=== PATIENT | male | born 1970 ===

== ENCOUNTER 2018-06-16 13:41 | Emergency (ER) | payer OTHER, BC ==
[2018-06-16 13:42] VITALS: BMI 27.3
[2018-06-16 13:46] VITALS: BP 148/88; PULSE 87; RESP 16; TEMP 98.5; O2SAT 98
--- NOTE | 2018-06-16 14:34 | ED PDOC ---
HPI: Back Time Seen by Provider: 06/16/18 13:53 Chief Complaint (Nursing): Back Pain Chief Complaint (Provider): Back Pain History Per: Patient History/Exam Limitations: no limitations Onset/Duration Of Symptoms: Days Current Symptoms Are (Timing): Still Present Additional Complaint(s): 47 year old male with a past medical history of hypercholesterolemia who is presenting to the ED for evaluation of back, knee, and shoulder pain after fall at work 4 days ago. Patient states that 4 days ago he was working on a truck and fell approximately 6 feet. He states that his left knee got caught as he attempted to stop the fall and he ended up falling onto his back and right shoulder. He notes that he has been having back, right shoulder, and knee pain which is mildly alleviated with Ibuprofen. He states that he did not come to the ED earlier as he was doing paperwork for workers compensation. Patient denies any head trauma, loss of consciousness, dizziness, nausea, or vomiting, but does admits to some tingling in bilateral hands and feet since fall. Of note, patient took ibuprofen last night with no medications taken today. PMD: none provided Past Medical History Reviewed: Historical Data, Nursing Documentation, Vital Signs Vital Signs: Last Vital Signs Temp 98.5 F 06/16/18 13:44 Pulse 87 06/16/18 13:44 Resp 16 06/16/18 13:44 BP 148/88 06/16/18 13:44 Pulse Ox 98 06/16/18 13:44 - Medical History PMH: Hypercholesterolemia - Surgical History Surgical History: No Surg Hx - Family History Family History: States: Unknown Family Hx - Social History Current smoker - smoking cessation education provided: No Alcohol: Social Drugs: Denies - Home Medications Home Medications: Ambulatory Orders Medication Instructions Recorded Ibuprofen [Motrin] 600 mg PO TID #30 tab 04/20/17 Methocarbamol [Robaxin] 500 mg PO TID #14 tab 09/11/17 Prednisone [Deltasone] 40 mg PO DAILY #8 tablet 09/11/17 traMADol [Ultram] 50 mg PO TID #7 tab 09/11/17 Ibuprofen [Motrin Tab] 800 mg PO Q6 PRN 7 Days tab 06/16/18 - Allergies Allergies/Adverse Reactions: Allergies Allergy/AdvReac Type Severity Reaction Status Date / Time No Known Allergies Allergy Verified 06/16/18 13:44 Review of Systems ROS Statement: Except As Marked, All Systems Reviewed And Found Negative Gastrointestinal: Negative for: Nausea, Vomiting Musculoskeletal: Positive for: Shoulder Pain, Back Pain, Leg Pain Neurological: Positive for: Other ((+) tingling in bilateral arms and feet (-) loss of consciousness). Negative for: Headache, Dizziness Physical Exam - Reviewed Nursing Documentation Reviewed: Yes Vital Signs Reviewed: Yes - Physical Exam Appears: Positive for: Non-toxic, No Acute Distress, Uncomfortable Head Exam: Positive for: ATRAUMATIC, NORMAL INSPECTION, NORMOCEPHALIC Skin: Positive for: Normal Color, Warm, DRY Eye Exam: Positive for: EOMI, Normal appearance, PERRL ENT: Positive for: Normal ENT Inspection Neck: Positive for: Decreased ROM (decreased rom with lateral rotation due to right sided neck pain, normal flexion and extension at neck, no pain or C- spine tenderness, (+) right lateral para-cervical spinal tenderness no ecchymosis ) Pulses-Dorsalis Pedis (L): 1+ Pulses-Dorsalis Pedis (R): 1+ Pulses-Radial (L): 2+ Pulses-Radial (R): 2+ Back: Positive for: Other (positive ecchymosis on lumbar spine around mild lumbar spine as well as mild thoracic spine with tenderness on palpation ) Extremity: Positive for: Capillary Refill (normal, less than 2 seconds ), Other (Left knee: no ecchymosis or swelling, (+) tenderness to palpation of the superior lateral knee with greater tenderness with lateral rotation of foot, normal flexion and extension of bilateral knees no tenderness to patella ; Right shoulder: mild tenderness between neck and arm full rom with flexion extension and abduction bilateral arms ). Negative for: Deformity, Swelling Neurologic/Psych: Positive for: Alert, Oriented, Other (sensation to light touch intact ). Negative for: Motor/Sensory Deficits - ECG O2 Sat by Pulse Oximetry: 98 (RA) Pulse Ox Interpretation: Normal Medical Decision Making Medical Decision Making: Time: 14:10 Plan: --CT Lumbar Spine without Contrast --CT Thoracic Spine without Contrast --Toradol 30 mg IM --Knee X-Ray --Shoulder X-Ray Knee x-ray: FINDINGS: BONES: Normal. No fracture. JOINTS: Normal. No osteoarthritis. JOINT EFFUSION: None. OTHER FINDINGS: None. IMPRESSION: Normal radiographs of the left knee. Shoulder X-ray: FINDINGS: BONES: Limited examination consists of only a single view. No fracture identified. JOINTS: Normal. Glenohumeral and acromioclavicular joints preserved. No osteoarthritis. SOFT TISSUES: Normal. OTHER FINDINGS: None. IMPRESSION: Normal limited examination Thoracic Spine CT: FINDINGS: VERTEBRAE: The vertebral bodies are maintained in height. Normal alignment is maintained.. DISCS/SPINAL CANAL/NEURAL FORAMINA: Within the limits of the CT technique, no disc herniation seen. No central canal or neural foraminal stenosis.. PARASPINAL SOFT TISSUES: Unremarkable. OTHER FINDINGS: Unremarkable. IMPRESSION: No acute fracture. Unremarkable examination. Lumbar Spine CT: FINDINGS: VERTEBRAE: The vertebral bodies are maintained in height. There is bilateral L3 spondylolysis. There are sclerotic borders consistent with congenital spondylolysis or old pars fractures. There is no spondylolisthesis. DISCS/SPINAL CANAL/NEURAL FORAMINA: L1-2: No disc bulge or herniation. No spinal or neural foraminal stenosis. L2-3: No disc bulge or herniation. No spinal or neural foraminal stenosis. L3-4: Extensive diffuse disc bulge. No focal herniation. There narrowing of the L3-4 disc space with osteophytes noted about the disc space, consistent with degenerative disc disease. No central spinal stenosis. Moderate right and severe left neural foraminal stenosis. L4-5: Mild diffuse disc bulge. No focal disc herniation. Minimal bilateral neural foraminal stenosis. No central spinal stenosis. L5-S1: No disc bulge or herniation. No spinal or neural foraminal stenosis. PARASPINAL SOFT TISSUES: Unremarkable. OTHER FINDINGS: None. IMPRESSION: No acute fracture. Degenerative disc disease L3-4. Bilateral old L3 spondylolysis, possibly congenital. Disc bulge L3-4 with bilateral neural foraminal stenosis. Minimal disc bulge L4-5 with minimal bilateral neural foraminal stenosis. No central spinal stenosis. 16:45 Patient states the pain somewhat approved. Stable for discharge home. Scribe Attestation: Documented by, Lucrecia Nieves acting as a scribe for Isabelle Hale PA-C. Provider Scribe Attestation: All medical record entries made by the Scribe were at my direction and personally dictated by me. I have reviewed the chart and agree that the record accurately reflects my personal performance of the history, physical exam, medical decision making, and the department course for this patient. I have also personally directed, reviewed, and agree with the discharge instructions and disposition. Disposition - Clinical Impression Clinical Impression: Traumatic ecchymosis of lower back, Shoulder pain, right, Knee pain, left - Patient ED Disposition Is Patient to be Admitted: No - Disposition Referrals: [facility] at [place] [Outside] Disposition: Routine/Home Disposition Time: 16:45 Condition: STABLE Additional Instructions: F/u in orthopedic clinic for further evaluation of knee pain. Take Tylenol and Ibuprofen for pain. Return to ER if you are unable to walk due to pain. Prescriptions: Ibuprofen [Motrin Tab] 800 mg PO Q6 PRN 7 Days tab PRN Reason: Pain, Moderate (4-7) Instructions: Contusion (DC), Shoulder Pain (DC) Forms: [employer] (T[place]anian), [facility] ED School/Work Excuse Print Language: AZERI
--- NOTE | 2018-06-16 14:58 | RAD ---
Date of service: 06/16/2018 PROCEDURE: Radiographs of the Right Shoulder HISTORY: fall onto back and R shoulder COMPARISON: No prior. FINDINGS: BONES: Limited examination consists of only a single view. No fracture identified. JOINTS: Normal. Glenohumeral and acromioclavicular joints preserved. No osteoarthritis. SOFT TISSUES: Normal. OTHER FINDINGS: None. IMPRESSION: Normal limited examination
--- NOTE | 2018-06-16 15:00 | RAD ---
Date of service: 06/16/2018 PROCEDURE: Left Knee Radiographs. HISTORY: Pain. COMPARISON: None. FINDINGS: BONES: Normal. No fracture. JOINTS: Normal. No osteoarthritis. JOINT EFFUSION: None. OTHER FINDINGS: None. IMPRESSION: Normal radiographs of the left knee.
--- NOTE | 2018-06-16 16:14 | CT ---
Date of service: 06/16/2018 PROCEDURE: CT Lumbar Spine without contrast HISTORY: fall off of truck 6 ft COMPARISON: None available. TECHNIQUE: Axial computed tomography images were obtained of the lumbar spine without the use of intravenous contrast. Coronal and sagittal reformatted images were created and reviewed. Radiation dose: Total exam DLP = 542.08 mGy-cm. This CT exam was performed using one or more of the following dose reduction techniques: Automated exposure control, adjustment of the mA and/or kV according to patient size, and/or use of iterative reconstruction technique. FINDINGS: VERTEBRAE: The vertebral bodies are maintained in height. There is bilateral L3 spondylolysis. There are sclerotic borders consistent with congenital spondylolysis or old pars fractures. There is no spondylolisthesis. DISCS/SPINAL CANAL/NEURAL FORAMINA: L1-2: No disc bulge or herniation. No spinal or neural foraminal stenosis. L2-3: No disc bulge or herniation. No spinal or neural foraminal stenosis. L3-4: Extensive diffuse disc bulge. No focal herniation. There narrowing of the L3-4 disc space with osteophytes noted about the disc space, consistent with degenerative disc disease. No central spinal stenosis. Moderate right and severe left neural foraminal stenosis. L4-5: Mild diffuse disc bulge. No focal disc herniation. Minimal bilateral neural foraminal stenosis. No central spinal stenosis. L5-S1: No disc bulge or herniation. No spinal or neural foraminal stenosis. PARASPINAL SOFT TISSUES: Unremarkable. OTHER FINDINGS: None. IMPRESSION: No acute fracture. Degenerative disc disease L3-4. Bilateral old L3 spondylolysis, possibly congenital. Disc bulge L3-4 with bilateral neural foraminal stenosis. Minimal disc bulge L4-5 with minimal bilateral neural foraminal stenosis. No central spinal stenosis.
--- NOTE | 2018-06-16 16:28 | CT ---
Date of service: 06/16/2018 PROCEDURE: CT Thoracic Spine without contrast HISTORY: fall off of truck onto back 4 days ago COMPARISON: None available. TECHNIQUE: Axial computed tomography images were obtained of the thoracic spine without intravenous contrast. Coronal and sagittal reformatted images were created and reviewed. Radiation dose: Total exam DLP = 614.83 mGy-cm. This CT exam was performed using one or more of the following dose reduction techniques: Automated exposure control, adjustment of the mA and/or kV according to patient size, and/or use of iterative reconstruction technique. FINDINGS: VERTEBRAE: The vertebral bodies are maintained in height. Normal alignment is maintained.. DISCS/SPINAL CANAL/NEURAL FORAMINA: Within the limits of the CT technique, no disc herniation seen. No central canal or neural foraminal stenosis.. PARASPINAL SOFT TISSUES: Unremarkable. OTHER FINDINGS: Unremarkable. IMPRESSION: No acute fracture. Unremarkable examination.
== END 2018-06-16 16:41 | disposition home or self-care (01) ==
LOC: H.ER 13:41
DX: S39.92XA Unspecified injury of lower back, initial encounter (principal); M25.511 Pain in right shoulder; M25.562 Pain in left knee; W19.XXXA Unspecified fall, initial encounter; Y99.0 Civilian activity done for income or pay; E78.00 Pure hypercholesterolemia, unspecified; M51.36 Other intervertebral disc degeneration, lumbar region
CPT/HCPCS: 72128; 72131; 73020; 73562; 96372; 99285; J1885